=== PATIENT | female | born 1965 | race Asian ===

== ENCOUNTER 2017-07-25 17:17 | Inpatient (IN) | payer OTHER ==
[~2017-07-25] VITALS: Ht 172.7 cm; Wt 78.2 kg
[2017-07-25] MEDS ORDERED: ONDANSETRON 2MG/ML, 2ML ONE (17:44)
[2017-07-25] MEDS ORDERED: MORPHINE SULFATE 4 MG/ML, 1ML ONE ×2 (17:45→19:35)
[2017-07-25] MEDS: MORPHINE SULFATE 4 MG/ML, 1ML IVPush PRN ×2 (17:59→19:50)
[2017-07-25] MEDS ORDERED: SODIUM CHLORIDE FLUSH 10ML SYR IVF ONE (18:00)
[2017-07-25] MEDS ORDERED: ONDANSETRON 2MG/ML, 2ML IVPush ONE (18:00)
[2017-07-25] MEDS ORDERED: SODIUM CHLORIDE 0.9% 1,000ML IVBOLUS ONE (18:00)
[2017-07-25 18:13] LABS: BASOPHILS # (AUTO) 0.01 x10^3/uL (0-0.1); BASOPHILS % (AUTO) 0 % (0-1); EOSINOPHILS % (AUTO) 0 % (1-7); LYMPHOCYTES # (AUTO) 0.82 x10^3/uL (1-3.4); LYMPHOCYTES % (AUTO) 12 % (22-44); MD NO; MEAN CORPUSCULAR HEMOGLOBIN 31.1 pg (27.0-34.8); MEAN CORPUSCULAR VOLUME 91.4 fL (80-100); MEAN PLATELET VOLUME 9.1 fL (7.4-10.4); MONOCYTES # (AUTO) 0.19 x10^3/uL (0.2-0.8); MONOCYTES % (AUTO) 3 % (2-9); NEUTROPHILS # (AUTO) 5.97 x10^3/uL (1.8-6.8); NEUTROPHILS % (AUTO) 85 % (42-75); PLATELET COUNT 168 x10^3/uL (130-400); RED BLOOD COUNT 5.11 x10^6/uL (3.82-5.3); RED CELL DISTRIBUTION WIDTH 12.9 % (9.6-15.2)
[2017-07-25 18:22] LABS: ALANINE AMINOTRANSFERASE 21 U/L (12-78); ALBUMIN 4.5 g/dL (3.4-5.0); ANION GAP 11 mmol/L (5-15); CALCIUM 9.8 mg/dL (8.5-10.1); CHLORIDE 104 mmol/L (98-107)
[2017-07-25 18:25] LABS: ALKALINE PHOSPHATASE 63 U/L (45-117); BILIRUBIN,TOTAL 0.7 mg/dL (0.2-1.0); TOTAL PROTEIN 9.1 g/dL (6.4-8.2)
[2017-07-25] MEDS ORDERED: LISI2.5T PO (18:37)
[2017-07-25] MEDS ORDERED: LISI-167 PO (18:43)
[2017-07-25] MEDS ORDERED: SERT50TA PO (18:43)
[2017-07-25] MEDS ORDERED: OMNIPAQUE 350 MG/ML, 100ML BOTTLE ONE (19:25)
[2017-07-25] MEDS ORDERED: BENZOCAINE AEROSOL SPRAY 20%, 60ML ONE (20:13)
[2017-07-25] MEDS ORDERED: SODIUM CHLORIDE FLUSH 10ML SYR IVF PRN (20:30)
[2017-07-25] MEDS: ENOXAPARIN 40 MG/0.4 ML SQ SCH (21:00)
[2017-07-25] MEDS ORDERED: ONDANSETRON 2MG/ML, 2ML IVPush PRN (21:00)
[2017-07-25] MEDS: D5%-0.9% NACL 1,000 ML IV SCH (21:00)
[2017-07-25] MEDS ORDERED: hydrALAzine 20 MG/ML, 1ML IVPush PRN (21:00)
[2017-07-25 22:30] VITALS: BP 153/95
[2017-07-25] MEDS ORDERED: BENZOCAINE 20% SPRAY 0.5ML TP PRN (22:30)
[2017-07-26] MEDS: morphine SULFATE 10 MG/ML, 1ML IVPush PRN ×2 (00:27→04:23)
[2017-07-26 02:27] VITALS: BP 134/86
[2017-07-26] MEDS: D5%-0.9% NACL 1,000 ML IV SCH ×2 (03:40→11:11)
[2017-07-26 07:56] VITALS: BP 131/80
[2017-07-26] MEDS ORDERED: ACETAMINOPHEN 650 MG SUPP PR PRN (08:30)
[2017-07-26] MEDS: ACETAMINOPHEN 325 MG TABLET PO PRN ×2 (11:10→15:25)
[2017-07-26 13:45] VITALS: BP 139/80
[2017-07-26 19:25] VITALS: BP 146/86
[2017-07-26] MEDS: ENOXAPARIN 40 MG/0.4 ML SQ SCH (21:00)
[2017-07-26] MEDS ORDERED: D5%-0.9% NACL 1,000 ML IV SCH (21:00)
[2017-07-27 02:30] VITALS: BP 149/89
[2017-07-27 07:05] VITALS: BP 129/83
[2017-07-27] MEDS ORDERED: POLYETHYLENE GLYCOL 17 GM PACKET NG ONE (09:00)
== END 2017-07-27 13:28 | disposition home or self-care (01) | DRG 390 ==
LOC: ED 18:29 → EDIP 20:18 → SUATTDRO 20:36 → 3NE 21:31 → DCLOUNGE 07-27 13:21
PROVIDERS: ADMIT Hospitalist; ATTEND Hospitalist
DX: K56.699 Other intestinal obstruction unspecified as to partial versus complete obstruction (principal); E86.9 Volume depletion, unspecified; I10 Essential (primary) hypertension; Z80.3 Family history of malignant neoplasm of breast; Z80.8 Family history of malignant neoplasm of other organs or systems; Z88.2 Allergy status to sulfonamides; Z88.8 Allergy status to other drugs, medicaments and biological substances
CPT/HCPCS: 36415; 74177; 80053; 83690; 85025; 96361; 96374; 96375; 96376; J2405; J7042; Q9967; J2270; J7030

== ENCOUNTER → 2018-02-21 | Outpatient (CLI) | payer OTHER ==
[~2018-02-21] MED LIST: LISI-167 PO; LISI2.5T PO; SERT50TA PO
== END | disposition home or self-care (01) ==
LOC: CFH 07:35
PROVIDERS: ATTEND Surgery
DX: K56.609 Unspecified intestinal obstruction, unspecified as to partial versus complete obstruction (principal)
CPT/HCPCS: 74245